=== PATIENT | female | born 1950 | race African-American/Black ===

== ENCOUNTER 2018-04-24 17:16 | Emergency (ER) | payer MEDICARE, MEDICAID ==
[~2018-04-24] VITALS: Ht 165.1 cm; Wt 64.0 kg
[2018-04-24] MEDS ORDERED: KETOROLAC 60MG/2ML VIAL IM ONE (20:00)
[2018-04-24 22:03] VITALS: BP 161/84
== END 2018-04-24 22:07 | disposition home or self-care (01) ==
LOC: ER 18:26
DX: S60.011A Contusion of right thumb without damage to nail, initial encounter (principal); S90.31XA Contusion of right foot, initial encounter; S20.211A Contusion of right front wall of thorax, initial encounter; J45.909 Unspecified asthma, uncomplicated; E11.9 Type 2 diabetes mellitus without complications; I10 Essential (primary) hypertension; Z88.0 Allergy status to penicillin; Z88.6 Allergy status to analgesic agent; V89.2XXA Person injured in unspecified motor-vehicle accident, traffic, initial encounter; Y93.89 Activity, other specified; Y92.89 Other specified places as the place of occurrence of the external cause; Y99.8 Other external cause status
CPT/HCPCS: 71045; 73130; 73630; 96372; 99283; J1885